=== PATIENT | female | born 1995 | race Caucasian/White ===

== ENCOUNTER → 2018-01-13 | Outpatient (CLI) | payer SELFPAY ==
[~2018-01-13] MED LIST: IBUP800 PO; IRON150C PO; MAGOXI400 PO; OXYACE5T PO; Verotin-Gr Cap1 EACH PO; Vistaril25 MG PO; Vitamin B-225 MG
== END ==
LOC: LAB EV 14:36
DX: N30.00 Acute cystitis without hematuria (principal)
CPT/HCPCS: 87086

== ENCOUNTER 2018-10-30 01:17 | Inpatient (IN) | payer BC ==
[~2018-10-30] VITALS: Wt 60.0 kg
[2018-10-30 01:41] LABS: BASOPHILS ABSOLUTE AUTO 0.05 K/mm3 (0.00-0.23); BASOPHILS PERCENT AUTO 0 % (0-2); EOSINOPHILS ABSOLUTE AUTO 0.14 K/mm3 (0.00-0.68); EOSINOPHILS PERCENT AUTO 1 % (0-6); Hematocrit 38.2 % (33.0-51.0); Hemoglobin 13.3 g/dL (11.5-16.0); IMMATURE GRAN ABSOLUTE AUTO 0.04 K/mm3 (0.00-0.10); IMMATURE GRAN PERCENT AUTO 0 % (0-1); LYMPHOCYTES ABSOLUTE AUTO 2.93 K/mm3 (0.84-5.20); LYMPHOCYTES PERCENT AUTO 26 % (21-46); MONOCYTES ABSOLUTE AUTO 0.82 K/mm3 (0.16-1.47); MONOCYTES PERCENT AUTO 7 % (4-13); Mean Corpuscular HGB 31.3 pg (26.0-34.0); Mean Corpuscular HGB Conc 34.8 g/dL (31.5-36.5); Mean Corpuscular Volume 90 fL (80-100); Mean Platelet Volume 10.1 fL (9.1-12.4); NEUTROPHILS ABSOLUTE AUTO 7.37 K/mm3 (1.96-9.15); NEUTROPHILS PERCENT AUTO 65 % (41-73); Platelet Count 269 K/mm3 (150-400); RDW Coefficient Variation 12.3 % (11.7-14.2); RDW Standard Deviation 39.9 fL (35.1-46.3); Red Blood Cell Count 4.25 M/mm3 (3.80-5.20); White Blood Cell Count 11.35 K/mm3 (4.00-11.30)
[2018-10-30 03:08] LABS: PCO2 Cord - Arterial 54.2 mmHg (40-50); PO2 Cord - Arterial 15.3 mmHg (16-20); pH Cord - Arterial 7.31 (7.28-7.35)
[2018-10-30 03:10] LABS: PCO2 Cord - Venous 42.8 mmHg (40-50); PO2 Cord - Venous 29.8 mmHg (28-32); pH Umbilical Cord - Venous 7.36 (7.26-7.35)
[2018-10-31 06:03] LABS: BASOPHILS ABSOLUTE AUTO 0.05 K/mm3 (0.00-0.23); BASOPHILS PERCENT AUTO 1 % (0-2); EOSINOPHILS ABSOLUTE AUTO 0.15 K/mm3 (0.00-0.68); EOSINOPHILS PERCENT AUTO 1 % (0-6); Hematocrit 35.6 % (33.0-51.0); Hemoglobin 11.9 g/dL (11.5-16.0); IMMATURE GRAN ABSOLUTE AUTO 0.04 K/mm3 (0.00-0.10); IMMATURE GRAN PERCENT AUTO 0 % (0-1); LYMPHOCYTES ABSOLUTE AUTO 2.55 K/mm3 (0.84-5.20); LYMPHOCYTES PERCENT AUTO 25 % (21-46); MONOCYTES ABSOLUTE AUTO 0.63 K/mm3 (0.16-1.47); MONOCYTES PERCENT AUTO 6 % (4-13); Mean Corpuscular HGB 30.9 pg (26.0-34.0); Mean Corpuscular HGB Conc 33.4 g/dL (31.5-36.5); NEUTROPHILS ABSOLUTE AUTO 6.94 K/mm3 (1.96-9.15); NEUTROPHILS PERCENT AUTO 67 % (41-73); Platelet Count 240 K/mm3 (150-400); RDW Coefficient Variation 12.4 % (11.7-14.2); Red Blood Cell Count 3.85 M/mm3 (3.80-5.20); White Blood Cell Count 10.36 K/mm3 (4.00-11.30)
[2018-10-31 06:05] LABS: Mean Corpuscular Volume 93 fL (80-100)
[2018-11-01] MEDS ORDERED: IBUP800 PO (11:24)
[2018-11-01] MEDS ORDERED: Percocet 5-3251 EACH PO (11:24)
== END 2018-11-01 12:15 | disposition home or self-care (01) | DRG 788 ==
LOC: BC 01:17 → OBS 01:17 → BC 01:33
PROVIDERS: Nurse Practitioner Obstetrics & Gynecology; Obstetrics & Gynecology
PROC: 10D00Z1 Extraction of Products of Conception, Low, Open Approach (ICD-10-PCS; principal; 2018-10-30 01:30)
DX: O34.211 Maternal care for low transverse scar from previous cesarean delivery (principal); Z91.018 Allergy to other foods; Z3A.39 39 weeks gestation of pregnancy; Z37.0 Single live birth
CPT/HCPCS: 36415; 82803; 85025; 86850; 86900; 86901; J0690; J1885; J2590; J2765; J3010; J7120

== ENCOUNTER 2019-01-07 07:11 | Day surgery (SDC) | payer BC ==
[~2019-01-07] VITALS: Ht 154.9 cm; Wt 52.2 kg
[~2019-01-07 07:11] MED LIST changes: +PRENATAL FORMULA PO; +Percocet 5-3251 EACH PO; +[UNRECOGNIZED DRUG - OTHER] PO
--- NOTE | 2019-01-07 07:52 | NUR ---
Ambulatory in Day Surgery History, Chart, Medications and Allergies reviewed before start of procedure. Lungs clear T/O to Auscultation. Patient confirms NPO status and agrees with scheduled surgery. Patient States Post-Procedure ride home has been arranged.
--- NOTE | 2019-01-07 09:07 | NUR ---
01/07/19 0907 Concepcion Andrade PATIENT VOIDED PRIOR TO COMING TO OR.
--- NOTE | 2019-01-07 11:17 | NUR ---
Discharge instructions reviewed with patient. Patient verbalizes understanding. Copy given to patient to take home. CALLED AND DISCUSSED NORCO USE WITH PHARMICIST PATRICK, EXPLAINED TO PATIENT THAT THE OPTIMAL TIMING TO DECRESE SLEEPYNESS IN BABY IS TO TIME BREASTFEEING WHEN NORCO TAKEN TO DECREASE THE AMOUNT PRESENT IN BREAST MILK. EXPLAINED THAT IT IS CONSIDERED SAFE TO TAKE WHILE . PATEINT REPORTS UNDERSTANDING FROM DR. SORENSEN THAT DUE TO MEDICATIONS RECEIVED THAT SHE SHOULD EXPRESS AND DISCARD BREAST MILK FOR 8 HOURS AFTER SURGERY. Discharged via wheelchair to private car for ride home WITH
== END 2019-01-07 12:00 | disposition home or self-care (01) ==
LOC: ORSCMMR 07:11 → ORD 08:45 → ORSCMMR 08:45
PROVIDERS: Surgery
PROC: 0WQF0ZZ Repair Abdominal Wall, Open Approach (ICD-10-PCS; principal; 2019-01-07 08:45)
DX: K42.9 Umbilical hernia without obstruction or gangrene (principal)
CPT/HCPCS: J0330; J0690; J1100; J2250; J2405; J2710; J3010; J7120

== ENCOUNTER → 2019-02-14 | Outpatient (CLI) | payer BC | END | disposition home or self-care (01) | LOC: LAB SHORT 11:45 → LAB EV 11:45 | DX: N39.0 Urinary tract infection, site not specified (principal) | CPT/HCPCS: 87086 ==

== ENCOUNTER → 2019-11-02 | Outpatient (CLI) | payer BC | LOC: LAB SHORT 11:44 → LAB EV 11:44 | DX: N39.0 Urinary tract infection, site not specified (principal) | CPT/HCPCS: 87077; 87086; 87147; 87186 ==

== ENCOUNTER 2020-03-11 06:59 | Day surgery (SDC) | payer BC, OTHER ==
[~2020-03-11] VITALS: Ht 160 cm; Wt 48.0 kg
[~2020-03-11 06:59] MED LIST changes: +OTC VITAMINS
--- NOTE | 2020-03-11 07:59 | NUR ---
Ambulatory in Day Surgery. Surgical site prepped with 2% Chlorhexidine cloth wipe. History, Chart, Medications and Allergies reviewed before start of procedure. Lungs clear T/O to Auscultation. Patient confirms NPO status and agrees with scheduled surgery. Pre-Op teaching done. Pt verbalizes understanding. Patient reports completing Chlorhexadine shower X2 prior to admission to hospital. Patient States Post-Procedure ride home has been arranged.
--- NOTE | 2020-03-11 09:35 | NUR ---
PT DOES GRIMACE AT TIMES STATES IT IS HER THROAT THAT IS BOTHERING HER . EATING ICE CHIPS. SHE STATES THAT DOES HELP DOES NOT WANT PAIN MEDICATION STATES SHE DOESNT LIKE IT
--- NOTE | 2020-03-11 10:21 | NUR ---
DISCHARGE PT DENIES N/V HAS PAIN 4/10 BUT DOES NOT WANT ANYTHING FOR PAIN. Dressing to procedure site clean, dry, intact with no visible drainage, swelling, erythema or bruising noted. Discharge instructions reviewed with patient. Patient verbalizes understanding. Copy given to patient to take home. Discharged via wheelchair to private car for ride home. PT GIVEN HARD COPY OF RX FOR OXYCODONE 5MG Q 4 HOURS PRN
== END 2020-03-11 22:51 | disposition home or self-care (01) ==
LOC: ORSCMMR 06:59 → ORD 08:30 → ORSCMMR 22:51
PROVIDERS: Surgery
PROC: 0WQF0ZZ Repair Abdominal Wall, Open Approach (ICD-10-PCS; principal; 2020-03-11 08:30)
DX: K43.9 Ventral hernia without obstruction or gangrene (principal)
CPT/HCPCS: J0690; J1100; J2250; J2370; J2405; J2704; J3010; J7120

== ENCOUNTER → 2020-07-05 | Outpatient (CLI) | payer BC | END | disposition home or self-care (01) | LOC: LAB SHORT 10:02 → LAB EV 10:02 | DX: N39.0 Urinary tract infection, site not specified (principal) | CPT/HCPCS: 87077; 87086; 87147; 87186 ==

== ENCOUNTER → 2021-06-13 | Outpatient (CLI) | payer BC | END | disposition home or self-care (01) | LOC: LAB 11:34 → LAB SHORT 11:34 | DX: N39.0 Urinary tract infection, site not specified (principal) | CPT/HCPCS: 87077; 87086; 87186 ==

== ENCOUNTER → 2021-12-20 | Outpatient (CLI) | payer BC ==
[2021-12-20 17:35] LABS: BASOPHILS ABSOLUTE AUTO 0.02 K/mm3 (0.00-0.23); BASOPHILS PERCENT AUTO 0 % (0-2); EOSINOPHILS PERCENT AUTO 1 % (0-6); Hemoglobin 13.5 g/dL (11.5-16.0); IMMATURE GRAN ABSOLUTE AUTO 0.02 K/mm3 (0.00-0.10); IMMATURE GRAN PERCENT AUTO 0 % (0-1); LYMPHOCYTES ABSOLUTE AUTO 0.59 K/mm3 (0.84-5.20); LYMPHOCYTES PERCENT AUTO 7 % (21-46); MONOCYTES PERCENT AUTO 5 % (4-13); Mean Corpuscular HGB 30.1 pg (26.0-34.0); Mean Corpuscular HGB Conc 34.6 g/dL (31.5-36.5); Mean Corpuscular Volume 87 fL (80-100); Mean Platelet Volume 9.4 fL (9.1-12.4); NEUTROPHILS ABSOLUTE AUTO 7.64 K/mm3 (1.96-9.15); NEUTROPHILS PERCENT AUTO 87 % (41-73); Platelet Count 315 K/mm3 (150-400); RDW Coefficient Variation 12.2 % (11.7-14.2); RDW Standard Deviation 38.5 fL (35.1-46.3); Red Blood Cell Count 4.49 M/mm3 (3.80-5.20); White Blood Cell Count 8.77 K/mm3 (4.00-11.30)
[2021-12-20 17:50] LABS: Alanine Aminotransfer (ALT/SGP 21 U/L (12-78); Albumin, Blood 3.9 g/dL (3.4-5.0); Albumin/Globulin Ratio 1.3 (0.8-1.8); Alk Phos 46 U/L (40-126); Anion Gap 12 mmol/L (6-16); Aspartate Aminotrans (AST/SGOT 27 U/L (12-37); Blood Urea Nitrogen 11 mg/dL (8-24); Bun/Creatinine Ratio 15.3 (12.0-20.0); CO2, Blood 25 mmol/L (21-32); Calcium, Blood 8.6 mg/dL (8.5-10.1); Chloride, Blood 102 mmol/L (98-108); Creatinine, Blood 0.72 mg/dL (0.40-1.00); Globulin, Blood 3.1 g/dL (2.2-4.0); Glomerular Filtration Rate >60 (60-); Glucose, Blood 96 mg/dL (70-99); Potassium, Blood 3.7 mmol/L (3.5-5.5); Sodium, Blood 139 mmol/L (136-145)
== END ==
LOC: LAB SHORT 17:29
PROVIDERS: Physician Assistant Medical
DX: R10.13 Epigastric pain (principal)
CPT/HCPCS: 80053; 83690; 85025

== ENCOUNTER 2022-06-01 18:17 | Emergency (ER) | payer BC ==
[~2022-06-01] VITALS: Ht 160 cm; Wt 51.3 kg
== END 2022-06-01 20:38 | disposition home or self-care (01) ==
LOC: ER 18:17
DX: S06.0X0A Concussion without loss of consciousness, initial encounter (principal); S16.1XXA Strain of muscle, fascia and tendon at neck level, initial encounter; W22.8XXA Striking against or struck by other objects, initial encounter; Z91.018 Allergy to other foods; Z87.891 Personal history of nicotine dependence; Z79.899 Other long term (current) drug therapy
CPT/HCPCS: 36415; A9270; J0780; J1200; J1885

== ENCOUNTER 2022-10-26 05:34 | Day surgery (SDC) | payer BC ==
[~2022-10-26] VITALS: Ht 160 cm; Wt 50.0 kg
[~2022-10-26 05:34] MED LIST changes: +DEPO-PROVE150 MG/1 M IM; +Ondansetron Odt8 MG MM
--- NOTE | 2022-10-26 12:40 | NUR ---
PATIENT ARRIVED TO UNIT VIA GURNEY FROM PACU. TRANSFERRED TO BED VIA SLIDER SHEET, PATIENT TOELRATED WELL. X4 LAP SITES TO ABDOMEN W/ DERMABOND, APEPAR WNL. SHELBY PAD IN PALCE WITH NO DRAINAGE NOTED. VSS ON RA. PATIENT REPORTS VERY MINIMAL PAIN, TOLERABLE AT THIS TIME. DENIES N/V. ORIENTED TO ROOM, CALL LIGHT IN REACH.
--- NOTE | 2022-10-26 17:47 | NUR ---
SHIFT SUMMARY POD 0 LAP HYSTERECTOMY. X4 LAP SITES TO ABDOMEN, APPEAR WNL. PATIENT REPORTS MODERATE PAIN TO FAR LEFT INCISION ESPECIALLY, MEDICATED PER EMAR. AMBULATING WELL TO BATHROOM, RUST REMOVED. TOELRATING PO INTAKE WELL, DENIES N/V. CALLS APPROPRIATELY, IN REACH.
--- NOTE | 2022-10-27 04:59 | NUR ---
SHIFT SUMMARY: PODx1 LAP. HYSTERECTOMY. ABD BINDER IN PLACE, X4 LAP SITES WITH DERMABOND. PT TOLERATING PO FLUIDS AND JELLO/CRACKERS. IND TO AMB IN ROOM. VOIDING. PAIN WELL MANAGED WITH PO IBU AND PERCOCET. VSS. REPORTED THAT SHE HAS NOT PASSED GAS AT THIS TIME. REPORTS LIGHT VAGINAL BLEEDING. RESTING WITH CALL LIGHT IN REACH. WILL GIVE REPORT TO DAY TIME RN.
[2022-10-27 05:26] LABS: BASOPHILS ABSOLUTE AUTO 0.05 K/mm3 (0.00-0.23); BASOPHILS PERCENT AUTO 0 % (0-2); EOSINOPHILS ABSOLUTE AUTO 0.07 K/mm3 (0.00-0.68); EOSINOPHILS PERCENT AUTO 1 % (0-6); Hematocrit 36.4 % (33.0-51.0); Hemoglobin 12.5 g/dL (11.5-16.0); IMMATURE GRAN ABSOLUTE AUTO 0.05 K/mm3 (0.00-0.10); IMMATURE GRAN PERCENT AUTO 0 % (0-1); LYMPHOCYTES PERCENT AUTO 20 % (21-46); MONOCYTES ABSOLUTE AUTO 0.83 K/mm3 (0.16-1.47); MONOCYTES PERCENT AUTO 6 % (4-13); Mean Corpuscular HGB Conc 34.3 g/dL (31.5-36.5); Mean Corpuscular Volume 88 fL (80-100); Mean Platelet Volume 9.9 fL (9.1-12.4); NEUTROPHILS ABSOLUTE AUTO 10.03 K/mm3 (1.96-9.15); NEUTROPHILS PERCENT AUTO 73 % (41-73); Platelet Count 371 K/mm3 (150-400); RDW Coefficient Variation 11.9 % (11.7-14.2); RDW Standard Deviation 38.4 fL (35.1-46.3); Red Blood Cell Count 4.16 M/mm3 (3.80-5.20); White Blood Cell Count 13.73 K/mm3 (4.00-11.30)
--- NOTE | 2022-10-27 10:48 | NUR ---
WONDERJERMAINE IN TO SEE PT.
[2022-10-27] MEDS ORDERED: ESTRADIOL2 MG PO (11:32)
[2022-10-27] MEDS ORDERED: IBU800 MG PO (11:32)
[2022-10-27] MEDS ORDERED: BANOPHEN25 MG PO (11:32)
[2022-10-27] MEDS ORDERED: Percocet 5-3251 EACH PO (11:33)
[2022-10-27] MEDS ORDERED: SIME80CH PO (11:34)
[2022-10-27] MEDS ORDERED: PROM25 PO (11:34)
--- NOTE | 2022-10-27 12:19 | NUR ---
SUMMARY CALLED PRESCRIPTION IN TO [facility] PER PT REQUEST. REVIEWED DC INSTRUCTIONS W/PT; VERBALIZED UNDERSTANDING. IV DC'D. PT LEFT UNIT IN WC W/POSSESSIONS AND DC PAPERWORK IN HAND, ACCOMPANIED BY FAMILY.
== END 2022-10-27 12:21 | disposition home or self-care (01) ==
LOC: ORSCMMR 05:34 → SURS 12:27 → ORSCMMR 13:30
PROVIDERS: Obstetrics & Gynecology
PROC: 0UT94ZZ Resection of Uterus, Percutaneous Endoscopic Approach (ICD-10-PCS; principal; 2022-10-26 07:30)
PROC: 0UT74ZZ Resection of Bilateral Fallopian Tubes, Percutaneous Endoscopic Approach (ICD-10-PCS; principal; 2022-10-26 07:30)
PROC: 0UT24ZZ Resection of Bilateral Ovaries, Percutaneous Endoscopic Approach (ICD-10-PCS; principal; 2022-10-26 07:30)
DX: N92.1 Excessive and frequent menstruation with irregular cycle (principal); N94.6 Dysmenorrhea, unspecified; N80.322 Deep endometriosis of the posterior cul-de-sac; Z87.891 Personal history of nicotine dependence
CPT/HCPCS: 58571; S2900; 36415; 85025; 88305; 88307; A9270; J0690; J1100; J1170; J1885; J2250; J2405; J2704; J3010; J7120

== ENCOUNTER → 2023-09-23 | Outpatient (CLI) | payer BC ==
[~2023-09-23] MED LIST changes: +BANOPHEN25 MG PO; +ESTRADIOL2 MG PO; +IBU800 MG PO; +PROM25 PO; +SIME80CH PO
[2023-09-23 08:28] LABS: BASOPHILS ABSOLUTE AUTO 0.04 K/mm3 (0.00-0.23); BASOPHILS PERCENT AUTO 1 % (0-2); EOSINOPHILS ABSOLUTE AUTO 0.07 K/mm3 (0.00-0.68); EOSINOPHILS PERCENT AUTO 1 % (0-6); Hematocrit 39.1 % (33.0-51.0); Hemoglobin 13.7 g/dL (11.5-16.0); IMMATURE GRAN ABSOLUTE AUTO 0.02 K/mm3 (0.00-0.10); IMMATURE GRAN PERCENT AUTO 0 % (0-1); LYMPHOCYTES ABSOLUTE AUTO 1.72 K/mm3 (0.84-5.20); LYMPHOCYTES PERCENT AUTO 23 % (21-46); MONOCYTES ABSOLUTE AUTO 0.48 K/mm3 (0.16-1.47); MONOCYTES PERCENT AUTO 6 % (4-13); Mean Corpuscular HGB 30.5 pg (26.0-34.0); Mean Corpuscular Volume 87 fL (80-100); Mean Platelet Volume 9.8 fL (9.1-12.4); NEUTROPHILS ABSOLUTE AUTO 5.32 K/mm3 (1.96-9.15); NEUTROPHILS PERCENT AUTO 70 % (41-73); Platelet Count 316 K/mm3 (150-400); RDW Coefficient Variation 11.9 % (11.7-14.2); RDW Standard Deviation 37.7 fL (35.1-46.3); Red Blood Cell Count 4.49 M/mm3 (3.80-5.20); White Blood Cell Count 7.65 K/mm3 (4.00-11.30)
[2023-09-23 08:37] LABS: Albumin, Blood 4.1 g/dL (3.4-5.0); Albumin/Globulin Ratio 1.2 (0.8-1.8); Bilirubin, Total 0.9 mg/dL (0.1-1.0); Bun/Creatinine Ratio 13.5 (12.0-20.0); Calcium, Blood 9.3 mg/dL (8.5-10.1); Creatinine, Blood 0.74 mg/dL (0.40-1.00); Globulin, Blood 3.3 g/dL (2.2-4.0); Potassium, Blood 3.7 mmol/L (3.5-5.5); Total Protein, Blood 7.4 g/dL (6.4-8.2)
== END ==
LOC: LAB SHORT 08:17 → LAB 08:17
PROVIDERS: Physician Assistant
DX: R10.9 Unspecified abdominal pain (principal)
CPT/HCPCS: 80053; 83690; 85025

== ENCOUNTER 2025-10-28 00:26 | Emergency (ER) | payer BC ==
[~2025-10-28] VITALS: Ht 160 cm; Wt 48.5 kg
[2025-10-28 00:50] VITALS: BP 114/81
[2025-10-28 01:13] LABS: Source, Urine Clean Catch
[2025-10-28] MEDS ORDERED: CefTRIAXone 1000 MG Vial IM ONE (01:15)
[2025-10-28] MEDS ORDERED: CEPH500 PO (01:18)
[2025-10-28 01:19] LABS: Bilirubin, Urine Neg (Neg); Color, Urine Yellow (P-Yellow); Glucose Qualitative, Urine Neg (Neg); Ketones, Urine Neg (Neg); Leukocyte Esterase, Urine 3+ (Neg); Protein, Urine 3+ (Neg); Specific Gravity, Urine 1.025 (1.003-1.022); Urobilinogen, Urine 1+ (Normal)
[2025-10-28 01:40] LABS: Red Blood Cells, Urine TNTC /hpf (0-2); White Blood Cells, Urine TNTC /hpf (0-5)
== END 2025-10-28 01:37 | disposition home or self-care (01) ==
LOC: ER 00:26
PROVIDERS: Emergency Medicine
DX: N39.0 Urinary tract infection, site not specified (principal); R31.9 Hematuria, unspecified; R30.0 Dysuria; Z88.8 Allergy status to other drugs, medicaments and biological substances; Z79.899 Other long term (current) drug therapy; Z87.891 Personal history of nicotine dependence
CPT/HCPCS: 81001; 87077; 87086; 87186; 96372; 99283-25; A9270; J0696